=== PATIENT | female | born 1965 | race African-American/Black ===

== ENCOUNTER 2017-04-17 09:49 | Emergency (ER) | payer OTHER ==
[2017-04-17] MEDS ORDERED: Ibuprofen 200 MG TAB ONE (10:13)
[2017-04-17] MEDS ORDERED: Acetaminophen 500 MG TAB ONE (10:14)
[2017-04-17] MEDS ORDERED: Nitroglycerin 2% Ointment 1 INCH/1 GM Packet ONE (11:04)
== END 2017-04-17 11:00 | disposition home or self-care (01) ==
LOC: NAV ERS 09:49
DX: J02.9 Acute pharyngitis, unspecified (principal)
CPT/HCPCS: 99283

== ENCOUNTER 2017-11-19 11:11 | Emergency (ER) | payer SELFPAY ==
[2017-11-19] MEDS ORDERED: Benzonatate 100 MG CAP ONE (11:46)
== END 2017-11-19 12:00 | disposition home or self-care (01) ==
LOC: NAV ERS 11:11
DX: J06.9 Acute upper respiratory infection, unspecified (principal)
CPT/HCPCS: 99283

== ENCOUNTER 2017-11-21 01:10 | Emergency (ER) | payer SELFPAY ==
[2017-11-21 01:58] LABS: Band 1 % (5-11); Eosinophils 3 % (0-10); Hemoglobin 11.4 g/dL (12.0-16.0); Lymphocytes 30 % (21-51); MDiff Complete? YES; Mean Corpuscular Hemoglobin 27.1 pg (27.0-31.0); Mean Corpuscular Volume 87.1 fl (81.0-99.0); Mean Platelet Volume 10.1 fL (7.4-10.4); Monocytes 6 % (0-10); Neutrophil 60 % (42-75); PLT Morphology Comment Appears Adequate; Platelet Count 218 thou/uL (130-400); RBC Distribution Width 12.6 % (11.5-14.5); RBC Morphology Normal; White Blood Cell (WBC) Count 6.8 thou/uL (4.8-10.8)
[2017-11-21 02:03] LABS: ALT (SGPT) 25 U/L (8-55); AST (SGOT) 24 U/L (5-34); Albumin 3.8 g/dL (3.5-5.0); Alkaline Phosphatase 105 U/L (40-150); Anion Gap 14 mmol/L (10-20); BUN (Urea Nitrogen) 15 mg/dL (9.8-20.1); Bilirubin, Total 0.2 mg/dL (0.2-1.2); Calc. Creatinine Clearance 0 mL/min (70-130); Calcium 9.3 mg/dL (7.8-10.44); Carbon Dioxide 25 mmol/L (22-29); Chloride 108 mmol/L (98-107); Estimated GFR-MDRD 82; Globulin 3.9 g/dL (2.4-3.5); Glucose 232 mg/dL (70-105); Potassium 3.8 mmol/L (3.5-5.1); Protein, Total 7.7 g/dL (6.0-8.3); Sodium 143 mmol/L (136-145)
[2017-11-21] MEDS ORDERED: cefTRIAXone\\ROCEPHIN 1 GM VIAL ONE (02:41)
[2017-11-21] MEDS ORDERED: Azithromycin 500 MG VIAL ONE (02:41)
[2017-11-21] MEDS ORDERED: Sodium Chloride 0.9% 100 ML ONE (02:41)
[2017-11-21] MEDS ORDERED: Sodium Chloride 0.9% 250 ML 250 ML ONE (02:52)
--- NOTE | 2017-11-21 07:27 | RAD ---
2 VIEWS CHEST: Date: 11/21/17 COMPARISON: None. HISTORY: Five days of cough and shortness of breath. FINDINGS: Two views of the chest show a cardiomediastinal silhouette which is upper limits of normal in size. A ir space opacity is seen obscuring the left hemidiaphragm and the left lower lobe consistent with lef t lower lobe pneumonia. No right side infiltrates are seen. No obvious pleural effusion is seen. IMPRESSION: Left lower lobe pneumonia. POS: [facility]
== END 2017-11-21 04:15 | disposition home or self-care (01) ==
LOC: NAV ERS 01:10
DX: J18.9 Pneumonia, unspecified organism (principal)
CPT/HCPCS: 36415; 71046; 80053; 83605; 85025; 87040; 94640; 94760; 96365; 96375; J0456; J0696; J7050; J7620

== ENCOUNTER 2017-11-23 08:28 | Emergency (ER) | payer SELFPAY | END 2017-11-23 09:05 | disposition home or self-care (01) | LOC: NAV ERS 08:28 | DX: J18.9 Pneumonia, unspecified organism (principal); I10 Essential (primary) hypertension | CPT/HCPCS: 99283 ==

== ENCOUNTER 2017-12-18 22:59 | Emergency (ER) | payer SELFPAY ==
[~2017-12-18 22:59] MED LIST: Iopamidol 370 76% 100 ML VIAL ONE
[2017-12-18 23:40] LABS: #Basophils 0.1 thou/uL (0.0-0.2); #Eosinphils 0.2 thou/uL (0.0-0.7); #Lymphocytes 2.2 thou/uL (1.20-3.40); #Monocytes 0.5 thou/uL (0.11-0.59); #Neutrophils 3.5 thou/uL (1.40-6.50); %Basophils 1.1 % (0.0-1.0); %Eosinophils 2.7 % (0.0-10.0); %Lymphocytes 33.5 % (21.0-51.0); %Monocytes 8.1 % (0.0-10.0); %Neutrophils 54.6 % (42.0-75.0); Hemoglobin 11.7 g/dL (12.0-16.0); Mean Corpuscular HGB CONC 31.3 g/dL (32.0-36.0); Mean Corpuscular Hemoglobin 26.7 pg (27.0-31.0); Mean Corpuscular Volume 85.1 fl (81.0-99.0); Mean Platelet Volume 9.4 fL (7.4-10.4); Platelet Count 191 thou/uL (130-400); RBC Distribution Width 13.6 % (11.5-14.5); Red Blood Cell (RBC) Count 4.39 mill/uL (4.20-5.40); White Blood Cell (WBC) Count 6.4 thou/uL (4.8-10.8)
[2017-12-18 23:57] LABS: CKMB 1.1 ng/mL (0-6.6); Troponin I Less than 0.010 ng/mL (< 0.028)
[2017-12-19 00:18] LABS: ALT (SGPT) 15 U/L (8-55); AST (SGOT) 15 U/L (5-34); Albumin 3.7 g/dL (3.5-5.0); Alkaline Phosphatase 82 U/L (40-150); Anion Gap 15 mmol/L (10-20); BUN (Urea Nitrogen) 13 mg/dL (9.8-20.1); Bilirubin, Total 0.3 mg/dL (0.2-1.2); Calc. Creatinine Clearance 0 mL/min (70-130); Calcium 8.9 mg/dL (7.8-10.44); Carbon Dioxide 25 mmol/L (22-29); Chloride 106 mmol/L (98-107); Estimated GFR-MDRD 86; Globulin 3.6 g/dL (2.4-3.5); Glucose 208 mg/dL (70-105); Potassium 3.2 mmol/L (3.5-5.1); Protein, Total 7.3 g/dL (6.0-8.3); Sodium 143 mmol/L (136-145)
[2017-12-19] MEDS ORDERED: Potassium Chloride 20 MEQ TAB ONE (00:30)
--- NOTE | 2017-12-19 06:56 | RAD ---
PORTABLE AP CHEST: Date: 12/18/17 HISTORY: Five days of coughing, worsening shortness of breath. COMPARISON: 11/21/17. FINDINGS: Again noted are pleural and parenchymal changes in the left lung base. This may be related to moderat e size left pleural effusion or atelectasis, although infiltrate related to pneumonia is a possibilit y. There are mild increased interstitial densities in the perihilar regions bilaterally, also seen on prior study. Cardiac silhouette is magnified by projection. Pulmonary vasculature is within normal l imits. IMPRESSION: Pleural and parenchymal lung changes again seen at the left lung base which may be related to moderat e size left pleural effusion and atelectasis. However, infiltrate related to a pneumonia is a possibi lity. There are mild increasing perihilar interstitial densities also present on the prior exam. POS: [facility]
--- NOTE | 2017-12-19 07:37 | CT ---
PRELIMINARY REPORT/[facility]/EMERGENCY AFTER-HOURS PROCEDURE: EXAM: CT Angiography Chest With Intravenous Contrast CLINICAL HISTORY: 52 years old, female; Pain; Chest pain; On breathing; Patient HX: SOB and mid chest pain TECHNIQUE: Axial computed tomographic angiography images of the chest with intravenous contrast using pulmonary embolism protocol. All CT scans at this facility use one or more dose reduction techniques, viz.: aut omated exposure control; ma/kV adjustment per patient size (including targeted exams where dose is ma tched to indication; i.e. head); or iterative reconstruction technique. MIP reconstructed images were created and reviewed. CONTRAST: 97 mL of ISOVUE 370 administered intravenously. COMPARISON: No relevant prior studies available. FINDINGS: Pulmonary arteries: Unremarkable. No pulmonary embolism. Aorta: No acute findings. No thoracic aortic aneurysm. Lungs: Scattered pulmonary parenchymal cysts. Left lower lobe compressive atelectasis. Subsegmental atelectasis in the bilateral lungs. No mass. Pleural space: Moderate bilateral pleural effusions. No pneumothorax. Heart: Mild cardiomegaly. No significant pericardial effusion. No evidence of RV dysfunction. Bones/joints: Degenerative changes in the spine. No acute fracture. No dislocation. Soft tissues: Unremarkable. Lymph nodes: Unremarkable. No enlarged lymph nodes. IMPRESSION: 1. No pulmonary embolism is evident. 2. Moderate bilateral pleural effusions with left lower lobe compressive atelectasis. Thank you for allowing us to participate in the care of your patient. Dictated and Authenticated by: Judit Olvera MD 12/19/2017 1:26 AM Central Time ([place] & [place]) FINAL REPORT CT PULMONARY ANGIOGRAM WITH IV CONTRAST AND 3D POSTPROCESSING: Date: 12/19/17 FINDINGS/IMPRESSION: I agree with the preliminary report given by Dr. Judit Olvera of [facility]. POS: [facility]
== END 2017-12-19 02:19 | disposition short-term general hospital (02) ==
LOC: NAV ERS 22:59
DX: J90 Pleural effusion, not elsewhere classified (principal); I10 Essential (primary) hypertension
CPT/HCPCS: 36415; 71045; 71275; 80053; 82553; 83605; 83880; 84484; 85025; 85379; 93005; 94760

== ENCOUNTER 2018-02-27 10:48 | Emergency (ER) | payer SELFPAY | END 2018-02-27 11:42 | disposition home or self-care (01) | LOC: NAV ERS 10:48 | DX: E11.65 Type 2 diabetes mellitus with hyperglycemia (principal); I11.0 Hypertensive heart disease with heart failure; I50.9 Heart failure, unspecified; E78.5 Hyperlipidemia, unspecified | CPT/HCPCS: 36416; 93005 ==

== ENCOUNTER 2018-03-15 11:32 | Emergency (ER) | payer SELFPAY ==
[2018-03-15] MEDS ORDERED: Ondansetron ODT 4 MG TAB ONE (11:50)
[2018-03-15 12:12] LABS: pH (venous) 7.35 (7.35-7.45)
[2018-03-15 12:13] LABS: Base Excess -2.7 mEq/L (-2 - +2)
[2018-03-15 12:14] LABS: Hemoglobin (Hb) 13.2 g/dL (11.7-16.0)
== END 2018-03-15 12:35 | disposition home or self-care (01) ==
LOC: NAV ERS 11:32
DX: R11.2 Nausea with vomiting, unspecified (principal); E11.9 Type 2 diabetes mellitus without complications; E78.5 Hyperlipidemia, unspecified; I11.0 Hypertensive heart disease with heart failure; I50.9 Heart failure, unspecified; Z79.84 Long term (current) use of oral hypoglycemic drugs; Z79.899 Other long term (current) drug therapy
CPT/HCPCS: 36416; 82805; 93005; Q0162

== ENCOUNTER 2018-03-31 08:04 | Emergency (ER) | payer SELFPAY ==
[2018-03-31] MEDS ORDERED: Sodium Chloride 0.9% 500 ML ONE (08:43)
[2018-03-31 09:18] LABS: ALT (SGPT) 11 U/L (8-55); AST (SGOT) 12 U/L (5-34); Albumin 3.9 g/dL (3.5-5.0); Alkaline Phosphatase 74 U/L (40-150); Anion Gap 18 mmol/L (10-20); BUN (Urea Nitrogen) 52 mg/dL (9.8-20.1); Bilirubin, Total 0.6 mg/dL (0.2-1.2); Calc. Creatinine Clearance 0 mL/min (70-130); Calcium 9.4 mg/dL (7.8-10.44); Carbon Dioxide 19 mmol/L (22-29); Chloride 104 mmol/L (98-107); Estimated GFR-MDRD 54; Globulin 3.9 g/dL (2.4-3.5); Glucose 229 mg/dL (70-105); Potassium 5.3 mmol/L (3.5-5.1); Protein, Total 7.8 g/dL (6.0-8.3); Sodium 136 mmol/L (136-145)
[2018-03-31 09:20] LABS: Hemoglobin 10.7 g/dL (12.0-16.0); Mean Corpuscular Hemoglobin 27.5 pg (27.0-31.0); Mean Corpuscular Volume 85.7 fl (81.0-99.0); Mean Platelet Volume 8.3 fL (7.4-10.4); Platelet Count 194 thou/uL (130-400); RBC Distribution Width 15.6 % (11.5-14.5); Red Blood Cell (RBC) Count 3.89 mill/uL (4.20-5.40); White Blood Cell (WBC) Count 6.5 thou/uL (4.8-10.8)
[2018-03-31 09:21] LABS: Anisocytosis SLIGHT = 6-15 cells (100X) (0-5/hpf); Eosinophils 1 % (0-10); Hypochromia SLIGHT = 6-15 cells (100X) (0-5/hpf); Lymphocytes 24 % (21-51); MDiff Complete? YES; Monocytes 6 % (0-10); Neutrophil 69 % (42-75); PLT Morphology Comment Appears Adequate
== END 2018-03-31 10:45 | disposition home or self-care (01) ==
LOC: NAV ERS 08:04
DX: I95.2 Hypotension due to drugs (principal); T46.5X5A Adverse effect of other antihypertensive drugs, initial encounter; E87.5 Hyperkalemia; N28.9 Disorder of kidney and ureter, unspecified; I11.0 Hypertensive heart disease with heart failure; I50.9 Heart failure, unspecified; E11.9 Type 2 diabetes mellitus without complications; E78.5 Hyperlipidemia, unspecified; Z79.84 Long term (current) use of oral hypoglycemic drugs; Z79.899 Other long term (current) drug therapy
CPT/HCPCS: 80053; 85025; 96360; J7050

== ENCOUNTER 2018-03-31 19:25 | Emergency (ER) | payer SELFPAY ==
[2018-03-31] MEDS ORDERED: Sodium Chloride 0.9% 1,000 ML ONE (20:04)
[2018-03-31] MEDS ORDERED: Ondansetron HCl/PF 4 MG/2 ML Vial ONE (20:04)
== END 2018-03-31 21:03 | disposition home or self-care (01) ==
LOC: NAV ERS 19:25
DX: T67.5XXA Heat exhaustion, unspecified, initial encounter (principal); R42 Dizziness and giddiness; T46.5X5A Adverse effect of other antihypertensive drugs, initial encounter; E78.5 Hyperlipidemia, unspecified; I11.0 Hypertensive heart disease with heart failure; I50.9 Heart failure, unspecified; E11.9 Type 2 diabetes mellitus without complications; Z79.84 Long term (current) use of oral hypoglycemic drugs; Z79.899 Other long term (current) drug therapy; W92.XXXA Exposure to excessive heat of man-made origin, initial encounter; Y92.511 Restaurant or cafe as the place of occurrence of the external cause; Y99.0 Civilian activity done for income or pay
CPT/HCPCS: 96361; 96374; J2405; J7050

== ENCOUNTER 2018-06-06 09:26 | Emergency (ER) | payer SELFPAY ==
[2018-06-06] MEDS ORDERED: Sodium Chloride 0.9% 1,000 ML ONE (10:24)
[2018-06-06 10:27] LABS: #Basophils 0.1 thou/uL (0.0-0.2); #Eosinphils 0.3 thou/uL (0.0-0.7); #Lymphocytes 1.6 thou/uL (1.20-3.40); #Monocytes 0.5 thou/uL (0.11-0.59); #Neutrophils 4.1 thou/uL (1.40-6.50); %Basophils 1.6 % (0.0-1.0); %Lymphocytes 24.4 % (21.0-51.0); %Monocytes 7.6 % (0.0-10.0); %Neutrophils 62.4 % (42.0-75.0); Hemoglobin 10.9 g/dL (12.0-16.0); Mean Corpuscular HGB CONC 32.2 g/dL (32.0-36.0); Mean Corpuscular Hemoglobin 28.8 pg (27.0-31.0); Mean Corpuscular Volume 89.5 fL (78.0-98.0); Mean Platelet Volume 8.3 fL (7.4-10.4); Platelet Count 241 thou/uL (130-400); RBC Distribution Width 11.9 % (11.5-14.5); Red Blood Cell (RBC) Count 3.79 mill/uL (4.20-5.40); White Blood Cell (WBC) Count 6.6 thou/uL (4.8-10.8)
[2018-06-06 11:01] LABS: CKMB 1.8 ng/mL (0-6.6); Troponin I Less than 0.010 ng/mL (< 0.028)
[2018-06-06 11:02] LABS: ALT (SGPT) 13 U/L (8-55); AST (SGOT) 12 U/L (5-34); Albumin 3.9 g/dL (3.5-5.0); Alkaline Phosphatase 79 U/L (40-150); Anion Gap 16 mmol/L (10-20); BUN (Urea Nitrogen) 26 mg/dL (9.8-20.1); Bilirubin, Total 0.4 mg/dL (0.2-1.2); CK (CPK) 195 U/L (29-168); Calc. Creatinine Clearance 0 mL/min (70-130); Calcium 9.4 mg/dL (7.8-10.44); Carbon Dioxide 19 mmol/L (22-29); Chloride 109 mmol/L (98-107); Estimated GFR-MDRD 80; Globulin 3.2 g/dL (2.4-3.5); Glucose 185 mg/dL (70-105); Potassium 4.4 mmol/L (3.5-5.1); Protein, Total 7.1 g/dL (6.0-8.3); Sodium 140 mmol/L (136-145)
[2018-06-06 11:22] LABS: Bilirubin Negative (Negative); Blood, Urine Negative (Negative); Glucose, Urine (Dipstick) Negative (Negative); Leukocyte Large (Negative); Nitrite Negative (Negative); Protein, Urine (Dipstick) 30 mg/dL (Neg-Trace); Specific Gravity, Urine 1.025 (1.005-1.030); Urobilinogen 0.2 mg/dL (0.2-1.0)
[2018-06-06 11:24] LABS: Clarity SL HAZY (Clear)
[2018-06-06 11:25] LABS: Squamous Epithelial 0-3 HPF (0-3); WBC/HPF 0-3 HPF (0-3)
--- NOTE | 2018-06-06 11:33 | CT ---
CT BRAIN NONCONTRAST: HISTORY: 53-year-old female with dizziness and vertigo. FINDINGS: There is no midline shift or any other mass effect. There is no evidence of acute intracranial hemor rhage, large cortical infarct, obstructive hydrocephalus, or extraaxial fluid collection. The calvar ium is intact. IMPRESSION: No acute intracranial findings. reece [] POS: [facility]
--- NOTE | 2018-06-06 11:33 | RAD ---
RADIOGRAPH CHEST 2 VIEWS: HISTORY: 53-year-old female with dizziness and vertigo. FINDINGS: There is no air space density, pulmonary edema, pleural effusion, pneumothorax, or cardiomegaly. IMPRESSION: No acute cardiopulmonary findings. reece [] POS: [facility]
== END 2018-06-06 12:13 | disposition home or self-care (01) ==
LOC: NAV ERS 09:26
DX: I95.2 Hypotension due to drugs (principal); T50.905A Adverse effect of unspecified drugs, medicaments and biological substances, initial encounter; R42 Dizziness and giddiness; H61.22 Impacted cerumen, left ear; I11.0 Hypertensive heart disease with heart failure; I50.9 Heart failure, unspecified; E11.9 Type 2 diabetes mellitus without complications; E78.5 Hyperlipidemia, unspecified; Z79.82 Long term (current) use of aspirin; Z79.84 Long term (current) use of oral hypoglycemic drugs; Z79.899 Other long term (current) drug therapy
CPT/HCPCS: 70450; 71046; 80053; 81003; 81015; 82553; 84484; 85025; 93005; 96360; 96361; J7050

== ENCOUNTER 2018-08-05 09:32 | Emergency (ER) | payer SELFPAY | END 2018-08-05 10:27 | disposition home or self-care (01) | LOC: NAV ERS 09:32 | DX: F43.0 Acute stress reaction (principal); I11.0 Hypertensive heart disease with heart failure; I50.9 Heart failure, unspecified; E11.9 Type 2 diabetes mellitus without complications; E78.5 Hyperlipidemia, unspecified; Z79.82 Long term (current) use of aspirin; Z79.84 Long term (current) use of oral hypoglycemic drugs; Z79.899 Other long term (current) drug therapy | CPT/HCPCS: 99283 ==

== ENCOUNTER 2018-09-29 08:15 | Emergency (ER) | payer OTHER, SELFPAY ==
[2018-09-29 09:12] LABS: #Basophils 0.1 thou/uL (0.0-0.2); #Eosinphils 0.2 thou/uL (0.0-0.7); #Lymphocytes 1.4 thou/uL (1.20-3.40); #Monocytes 0.6 thou/uL (0.11-0.59); #Neutrophils 3.6 thou/uL (1.40-6.50); %Basophils 0.9 % (0.0-1.0); %Eosinophils 3.1 % (0.0-10.0); %Monocytes 9.6 % (0.0-10.0); %Neutrophils 62.4 % (42.0-75.0); Hemoglobin 10.2 g/dL (12.0-16.0); Mean Corpuscular HGB CONC 32.3 g/dL (32.0-36.0); Mean Corpuscular Hemoglobin 29.2 pg (27.0-31.0); Mean Corpuscular Volume 90.5 fL (78.0-98.0); Mean Platelet Volume 7.9 fL (7.4-10.4); Platelet Count 191 thou/uL (130-400); RBC Distribution Width 12.7 % (11.5-14.5); White Blood Cell (WBC) Count 5.7 thou/uL (4.8-10.8)
[2018-09-29 09:28] LABS: ALT (SGPT) 9 U/L (8-55); AST (SGOT) 10 U/L (5-34); Albumin 3.5 g/dL (3.5-5.0); Alkaline Phosphatase 58 U/L (40-150); Anion Gap 14 mmol/L (10-20); BUN (Urea Nitrogen) 20 mg/dL (9.8-20.1); Bilirubin, Total 0.3 mg/dL (0.2-1.2); Calc. Creatinine Clearance 0 mL/min (70-130); Calcium 8.9 mg/dL (7.8-10.44); Carbon Dioxide 23 mmol/L (22-29); Chloride 107 mmol/L (98-107); Estimated GFR-MDRD 88; Globulin 3.3 g/dL (2.4-3.5); Glucose 170 mg/dL (70-105); Magnesium 1.6 mg/dL (1.6-2.6); Potassium 4.1 mmol/L (3.5-5.1); Protein, Total 6.8 g/dL (6.0-8.3); Sodium 140 mmol/L (136-145)
[2018-09-29 09:29] LABS: Troponin I Less than 0.010 ng/mL (< 0.028)
[2018-09-29 09:37] LABS: Bilirubin Negative (Negative); Blood, Urine Negative (Negative); Clarity Clear (Clear); Glucose, Urine (Dipstick) Negative (Negative); Leukocyte Trace (Negative); Nitrite Negative (Negative); Protein, Urine (Dipstick) 30 mg/dL (Neg-Trace); Specific Gravity, Urine 1.025 (1.005-1.030); Urobilinogen 0.2 mg/dL (0.2-1.0); pH, Urine 5.5 (5.0-9.0)
[2018-09-29] MEDS ORDERED: Sodium Chloride 0.9% 1,000 ML ONE (09:43)
[2018-09-29 09:59] LABS: Bacteria/HPF Rare-Few HPF (None Seen); Other Microscopic Description NO; RBC/HPF None Seen HPF (0-3); Squamous Epithelial 0-3 HPF (0-3); WBC/HPF 0-3 HPF (0-3)
--- NOTE | 2018-09-29 11:39 | RAD ---
2 VIEW CHEST: Date: 09/29/18 COMPARISON: 08/24/18. INDICATION: Dizziness. Hypotension. FINDINGS: There is shallow depth of inspiration, which accentuates cardiac silhouette and pulmonary vasculature . There is a single lead left AICD. No evidence of consolidation or significant effusion. The left alina ng base is obscured by cardiac pacing device. IMPRESSION: Shallow depth of inspiration accentuating cardiac silhouette and pulmonary vasculature. A mild compon ent of edema may be superimposed, as well. POS: [facility]
== END 2018-09-29 12:07 | disposition home or self-care (01) ==
LOC: NAV ERS 08:15
DX: I95.1 Orthostatic hypotension (principal); E86.0 Dehydration; E11.9 Type 2 diabetes mellitus without complications; E78.5 Hyperlipidemia, unspecified; I11.0 Hypertensive heart disease with heart failure; I50.9 Heart failure, unspecified; Z79.84 Long term (current) use of oral hypoglycemic drugs; Z79.82 Long term (current) use of aspirin; Z79.899 Other long term (current) drug therapy
CPT/HCPCS: 36416; 71046; 80053; 81003; 81015; 83605; 83735; 83880; 84484; 85025; 93005; 94760; 96360; 96361; 36415-59; J7050

== ENCOUNTER 2018-11-22 08:09 | Emergency (ER) | payer OTHER | END 2018-11-22 08:58 | disposition home or self-care (01) | LOC: NAV ERS 08:09 | DX: I95.9 Hypotension, unspecified (principal); E11.9 Type 2 diabetes mellitus without complications; I11.0 Hypertensive heart disease with heart failure; I50.9 Heart failure, unspecified; E78.5 Hyperlipidemia, unspecified; Z79.82 Long term (current) use of aspirin; Z79.84 Long term (current) use of oral hypoglycemic drugs; Z79.899 Other long term (current) drug therapy; Z79.891 Long term (current) use of opiate analgesic | CPT/HCPCS: 99283 ==

== ENCOUNTER 2019-01-22 08:17 | Emergency (ER) | payer OTHER ==
[2019-01-22 09:04] LABS: #Basophils 0.1 thou/uL (0.0-0.2); #Eosinphils 0.2 thou/uL (0.0-0.7); #Monocytes 0.5 thou/uL (0.11-0.59); #Neutrophils 3.9 thou/uL (1.40-6.50); %Basophils 1.2 % (0.0-1.0); %Eosinophils 3.8 % (0.0-10.0); %Lymphocytes 17.5 % (21.0-51.0); %Monocytes 8.9 % (0.0-10.0); %Neutrophils 68.7 % (42.0-75.0); Hemoglobin 9.3 g/dL (12.0-16.0); Mean Corpuscular HGB CONC 31.7 g/dL (32.0-36.0); Mean Corpuscular Hemoglobin 28.7 pg (27.0-31.0); Mean Corpuscular Volume 90.5 fL (78.0-98.0); Mean Platelet Volume 8.2 fL (7.4-10.4); Platelet Count 162 thou/uL (130-400); RBC Distribution Width 14.5 % (11.5-14.5); Red Blood Cell (RBC) Count 3.24 mill/uL (4.20-5.40); White Blood Cell (WBC) Count 5.7 thou/uL (4.8-10.8)
[2019-01-22] MEDS ORDERED: Acetaminophen 500 MG TAB ONE (09:07)
[2019-01-22] MEDS ORDERED: Sodium Chloride 0.9% 500 ML ONE (09:08)
--- NOTE | 2019-01-22 09:17 | RAD ---
SINGLE VIEW CHEST: Date: 01/22/19 COMPARISON: 08/24/18. HISTORY: Hypotension and low blood sugar. FINDINGS: Single view of the chest shows a normal sized cardiomediastinal silhouette. The pacemaker is unchange d in position. There is no evidence of consolidation, mass, or pleural effusion. IMPRESSION: No evidence of acute cardiopulmonary disease. POS: [facility]
[2019-01-22 09:26] LABS: ALT (SGPT) 12 U/L (8-55); AST (SGOT) 14 U/L (5-34); Albumin 3.2 g/dL (3.5-5.0); Alkaline Phosphatase 71 U/L (40-150); Anion Gap 14 mmol/L (10-20); BUN (Urea Nitrogen) 23 mg/dL (9.8-20.1); Bilirubin, Total 0.3 mg/dL (0.2-1.2); Calc. Creatinine Clearance 0 mL/min (70-130); Calcium 8.6 mg/dL (7.8-10.44); Carbon Dioxide 21 mmol/L (22-29); Chloride 109 mmol/L (98-107); Estimated GFR-MDRD 80; Globulin 3.5 g/dL (2.4-3.5); Glucose 135 mg/dL (70-105); Potassium 4.6 mmol/L (3.5-5.1); Protein, Total 6.7 g/dL (6.0-8.3); Sodium 139 mmol/L (136-145)
== END 2019-01-22 09:49 | disposition home or self-care (01) ==
LOC: NAV ERS 08:17
DX: I95.89 Other hypotension (principal); D64.9 Anemia, unspecified; E86.0 Dehydration; E11.649 Type 2 diabetes mellitus with hypoglycemia without coma; I11.0 Hypertensive heart disease with heart failure; I50.9 Heart failure, unspecified; Z79.82 Long term (current) use of aspirin; Z79.899 Other long term (current) drug therapy
CPT/HCPCS: 36416; 71045; 80053; 83880; 84484; 85025; 93005; J7050

== ENCOUNTER 2019-03-23 08:57 | Emergency (ER) | payer OTHER ==
[2019-03-23 09:48] LABS: #Basophils 0.1 thou/uL (0.0-0.2); #Eosinphils 0.3 thou/uL (0.0-0.7); #Lymphocytes 1.6 thou/uL (1.20-3.40); #Monocytes 0.4 thou/uL (0.11-0.59); #Neutrophils 4.3 thou/uL (1.40-6.50); %Basophils 1.2 % (0.0-1.0); %Eosinophils 4.3 % (0.0-10.0); %Lymphocytes 23.5 % (21.0-51.0); %Monocytes 6.4 % (0.0-10.0); %Neutrophils 64.6 % (42.0-75.0); Hemoglobin 9.9 g/dL (12.0-16.0); Mean Corpuscular Hemoglobin 28.1 pg (27.0-31.0); Mean Corpuscular Volume 90.6 fL (78.0-98.0); Mean Platelet Volume 8.1 fL (7.4-10.4); Platelet Count 205 thou/uL (130-400); RBC Distribution Width 13.6 % (11.5-14.5); Red Blood Cell (RBC) Count 3.53 mill/uL (4.20-5.40); White Blood Cell (WBC) Count 6.7 thou/uL (4.8-10.8)
[2019-03-23 09:50] LABS: Bilirubin Negative (Negative); Blood, Urine Negative (Negative); Clarity Clear (Clear); Glucose, Urine (Dipstick) Negative (Negative); Nitrite Negative (Negative); Protein, Urine (Dipstick) 100 mg/dL (Neg-Trace); Urobilinogen 0.2 mg/dL (0.2-1.0); pH, Urine 5.5 (5.0-9.0)
[2019-03-23 10:00] LABS: Bacteria/HPF Rare-Few HPF (None Seen); Leukocyte Negative (Negative); Other Microscopic Description NO; RBC/HPF None Seen HPF (0-3); Squamous Epithelial 0-3 HPF (0-3); WBC/HPF 0-3 HPF (0-3)
[2019-03-23 10:01] LABS: ALT (SGPT) 11 U/L (8-55); AST (SGOT) 15 U/L (5-34); Albumin 3.4 g/dL (3.5-5.0); Alkaline Phosphatase 78 U/L (40-150); Anion Gap 15 mmol/L (10-20); BUN (Urea Nitrogen) 22 mg/dL (9.8-20.1); Bilirubin, Total 0.4 mg/dL (0.2-1.2); Calc. Creatinine Clearance 0 mL/min (70-130); Calcium 8.5 mg/dL (7.8-10.44); Carbon Dioxide 24 mmol/L (22-29); Chloride 106 mmol/L (98-107); Estimated GFR-MDRD 66; Globulin 3.2 g/dL (2.4-3.5); Glucose 258 mg/dL (70-105); Potassium 4.6 mmol/L (3.5-5.1); Protein, Total 6.6 g/dL (6.0-8.3); Sodium 140 mmol/L (136-145)
== END 2019-03-23 10:28 | disposition home or self-care (01) ==
LOC: NAV ERS 08:57
DX: E11.65 Type 2 diabetes mellitus with hyperglycemia (principal); R51 Headache; I11.0 Hypertensive heart disease with heart failure; I50.9 Heart failure, unspecified; E78.5 Hyperlipidemia, unspecified; Z79.899 Other long term (current) drug therapy
CPT/HCPCS: 36416; 80053; 81003; 81015; 85025; 93005

== ENCOUNTER 2020-04-12 08:49 | Emergency (ER) | payer OTHER, SELFPAY | END 2020-04-12 10:12 | disposition home or self-care (01) | LOC: NAV ERS 08:49 | DX: R68.83 Chills (without fever) (principal); R05 Cough; R06.7 Sneezing; Z20.828 Contact with and (suspected) exposure to other viral communicable diseases; E11.9 Type 2 diabetes mellitus without complications; D50.9 Iron deficiency anemia, unspecified; E78.5 Hyperlipidemia, unspecified; I11.0 Hypertensive heart disease with heart failure; I50.9 Heart failure, unspecified; Z79.82 Long term (current) use of aspirin; Z79.84 Long term (current) use of oral hypoglycemic drugs; Z79.899 Other long term (current) drug therapy; Z79.891 Long term (current) use of opiate analgesic | CPT/HCPCS: 99283 ==

== ENCOUNTER 2020-10-30 09:59 | Emergency (ER) | payer MEDICARE, OTHER, SELFPAY ==
[2020-10-30 11:29] LABS: #Basophils 0.1 thou/uL (0.0-0.2); #Eosinphils 0.3 thou/uL (0.0-0.7); #Lymphocytes 1.3 thou/uL (1.20-3.40); #Monocytes 0.4 thou/uL (0.11-0.59); #Neutrophils 4.1 thou/uL (1.40-6.50); %Basophils 0.9 % (0.0-1.0); %Eosinophils 5.2 % (0.0-10.0); %Lymphocytes 20.5 % (21.0-51.0); %Monocytes 7.1 % (0.0-10.0); %Neutrophils 66.2 % (42.0-75.0); Hemoglobin 10.1 g/dL (12.0-16.0); Mean Corpuscular HGB CONC 30.1 g/dL (32.0-36.0); Mean Corpuscular Volume 93.1 fL (78.0-98.0); Mean Platelet Volume 7.9 fL (7.4-10.4); Platelet Count 220 thou/uL (130-400); RBC Distribution Width 15.2 % (11.5-14.5); Red Blood Cell (RBC) Count 3.62 mill/uL (4.20-5.40); White Blood Cell (WBC) Count 6.2 thou/uL (4.8-10.8)
[2020-10-30] MEDS ORDERED: Sodium Chloride 0.9% 1,000 ML ONE (11:44)
[2020-10-30 11:47] LABS: ALT (SGPT) 9 U/L (8-55); AST (SGOT) 7 U/L (5-34); Albumin 3.7 g/dL (3.5-5.0); Alkaline Phosphatase 94 U/L (40-110); Anion Gap 16 mmol/L (10-20); BUN (Urea Nitrogen) 28 mg/dL (9.8-20.1); Bilirubin, Total 0.2 mg/dL (0.2-1.2); Calc. Creatinine Clearance 0 mL/min (70-130); Calcium 8.8 mg/dL (7.8-10.44); Carbon Dioxide 19 mmol/L (22-29); Chloride 108 mmol/L (98-107); Globulin 3.9 g/dL (2.4-3.5); Glucose 232 mg/dL (70-105); Potassium 4.2 mmol/L (3.5-5.1); Protein, Total 7.6 g/dL (6.0-8.3); Sodium 139 mmol/L (136-145)
--- NOTE | 2020-10-30 12:31 | RAD ---
RADIOGRAPH CHEST 2 VIEWS: DATE: 10/30/2020 HISTORY: 55-year-old female with sepsis FINDINGS: There is no airspace density, pulmonary edema, pleural effusion, pneumothorax, or cardiomegaly. Singl e lead ICD with left-sided generator. IMPRESSION: No acute cardiopulmonary findings.
[2020-10-30 13:11] LABS: Bilirubin Negative (Negative); Blood, Urine Negative (Negative); Clarity Clear (Clear); Glucose, Urine (Dipstick) >=1000 mg/dL (Negative); Ketone, Urine Negative (Negative); Leukocyte Trace (Negative); Nitrite Negative (Negative); Protein, Urine (Dipstick) Negative (Neg-Trace); Urobilinogen 0.2 mg/dL (Less than 2)
[2020-10-30 13:17] LABS: Bacteria/HPF Rare-Few HPF (None Seen); RBC/HPF 0-3 HPF (0-3)
[2020-10-30] MEDS ORDERED: Sodium Chloride 0.9% 100 ML ONE (13:25)
[2020-10-30] MEDS ORDERED: cefTRIAXone\\ROCEPHIN 2 GM VIAL ONE (13:25)
[2020-10-30] MEDS ORDERED: Sodium Chloride 0.9% 500 ML ONE (13:43)
[2020-10-30 14:15] LABS: Lactic Acid 1.8 mmol/L (0.5-2.2)
== END 2020-10-30 14:37 | disposition short-term general hospital (02) ==
LOC: NAV ERS 09:59
DX: I95.9 Hypotension, unspecified (principal); D64.9 Anemia, unspecified; R00.1 Bradycardia, unspecified; E86.0 Dehydration; E11.9 Type 2 diabetes mellitus without complications; E78.5 Hyperlipidemia, unspecified; N39.0 Urinary tract infection, site not specified; D50.9 Iron deficiency anemia, unspecified; I11.0 Hypertensive heart disease with heart failure; I50.9 Heart failure, unspecified; Z79.84 Long term (current) use of oral hypoglycemic drugs; Z79.82 Long term (current) use of aspirin; Z79.899 Other long term (current) drug therapy
CPT/HCPCS: 36415; 71046; 80053; 81003; 81015; 83605; 84484; 85025; 87086; 93005; 96365; J0696; J3490; J7030; J7050

== ENCOUNTER 2022-02-13 07:42 | Emergency (ER) | payer MEDICARE ==
[2022-02-13] MEDS ORDERED: Sodium Chloride 0.9% 500 ML ONE (08:01)
[2022-02-13 09:21] LABS: Anion Gap 13 mmol/L (10-20); BUN (Urea Nitrogen) 24 mg/dL (9.8-20.1); Calc. Creatinine Clearance 0 mL/min (70-130); Calcium 8.5 mg/dL (7.8-10.44); Carbon Dioxide 22 mmol/L (22-29); Chloride 112 mmol/L (98-107); Glucose 219 mg/dL (70-105); Potassium 4.5 mmol/L (3.5-5.1); Sodium 142 mmol/L (136-145)
[2022-02-13 09:29] LABS: #Basophils 0.1 thou/uL (0.0-0.2); #Eosinphils 0.4 thou/uL (0.0-0.7); #Lymphocytes 1.5 thou/uL (1.20-3.40); #Monocytes 0.5 thou/uL (0.11-0.59); #Neutrophils 4.3 thou/uL (1.40-6.50); %Basophils 1.2 % (0.0-1.0); %Eosinophils 6.3 % (0.0-10.0); %Lymphocytes 21.9 % (21.0-51.0); %Monocytes 7.6 % (0.0-10.0); %Neutrophils 62.9 % (42.0-75.0); Hemoglobin 9.6 g/dL (12.0-16.0); Mean Corpuscular HGB CONC 28.9 g/dL (32.0-36.0); Mean Corpuscular Hemoglobin 27.6 pg (27.0-31.0); Mean Corpuscular Volume 95.2 fL (78.0-98.0); Platelet Count 187 thou/uL (130-400); RBC Distribution Width 14.8 % (11.5-14.5); Red Blood Cell (RBC) Count 3.49 mill/uL (4.20-5.40); White Blood Cell (WBC) Count 6.8 thou/uL (4.8-10.8)
== END 2022-02-13 09:55 | disposition home or self-care (01) ==
LOC: NAV ERS 07:42
DX: I95.9 Hypotension, unspecified (principal); E86.0 Dehydration; I11.0 Hypertensive heart disease with heart failure; I50.9 Heart failure, unspecified; E11.9 Type 2 diabetes mellitus without complications; E78.5 Hyperlipidemia, unspecified; D50.9 Iron deficiency anemia, unspecified; Z95.0 Presence of cardiac pacemaker; Z79.82 Long term (current) use of aspirin; Z79.4 Long term (current) use of insulin; Z79.899 Other long term (current) drug therapy
CPT/HCPCS: 80048; 85025; 99284; J7030

== ENCOUNTER 2022-05-11 11:25 | Emergency (ER) | payer MEDICARE | END 2022-05-11 12:40 | disposition home or self-care (01) | LOC: NAV ERS 11:25 | DX: U07.1 COVID-19 (principal); I50.9 Heart failure, unspecified; E11.9 Type 2 diabetes mellitus without complications; E78.5 Hyperlipidemia, unspecified; I11.0 Hypertensive heart disease with heart failure; Z79.899 Other long term (current) drug therapy; Z79.84 Long term (current) use of oral hypoglycemic drugs | CPT/HCPCS: 71046; U0003; U0005 ==

== ENCOUNTER 2022-05-27 07:03 | Emergency (ER) | payer MEDICARE | END 2022-05-27 07:45 | disposition home or self-care (01) | LOC: NAV ERS 07:03 | DX: E11.65 Type 2 diabetes mellitus with hyperglycemia (principal); E78.5 Hyperlipidemia, unspecified; I11.0 Hypertensive heart disease with heart failure; I50.9 Heart failure, unspecified; Z79.899 Other long term (current) drug therapy; Z79.84 Long term (current) use of oral hypoglycemic drugs | CPT/HCPCS: 36416; 99284 ==

== ENCOUNTER 2022-06-05 07:05 | Emergency (ER) | payer MEDICARE, OTHER | END 2022-06-05 08:00 | disposition home or self-care (01) | LOC: NAV ERS 07:05 | DX: I10 Essential (primary) hypertension (principal); D50.9 Iron deficiency anemia, unspecified; I11.0 Hypertensive heart disease with heart failure; I50.9 Heart failure, unspecified; E11.9 Type 2 diabetes mellitus without complications; E78.5 Hyperlipidemia, unspecified; Z79.82 Long term (current) use of aspirin; Z79.899 Other long term (current) drug therapy; Z79.84 Long term (current) use of oral hypoglycemic drugs | CPT/HCPCS: 99281 ==

== ENCOUNTER 2022-06-06 17:08 | Emergency (ER) | payer OTHER | END 2022-06-06 17:37 | disposition home or self-care (01) | LOC: NAV ERS 17:08 | DX: E11.65 Type 2 diabetes mellitus with hyperglycemia (principal); I11.0 Hypertensive heart disease with heart failure; I50.9 Heart failure, unspecified; E11.9 Type 2 diabetes mellitus without complications; E78.5 Hyperlipidemia, unspecified; D50.9 Iron deficiency anemia, unspecified; Z95.0 Presence of cardiac pacemaker; Z79.82 Long term (current) use of aspirin; Z79.84 Long term (current) use of oral hypoglycemic drugs; Z79.899 Other long term (current) drug therapy | CPT/HCPCS: 36416; 99281 ==

== ENCOUNTER 2022-09-20 14:58 | Emergency (ER) | payer OTHER ==
[2022-09-20] MEDS ORDERED: Benzonatate 100 MG CAP ONE (16:57)
== END 2022-09-20 17:50 | disposition home or self-care (01) ==
LOC: NAV ERS 14:58
DX: J10.1 Influenza due to other identified influenza virus with other respiratory manifestations (principal); J32.9 Chronic sinusitis, unspecified; E78.5 Hyperlipidemia, unspecified; E11.9 Type 2 diabetes mellitus without complications; I11.0 Hypertensive heart disease with heart failure; I50.9 Heart failure, unspecified; Z79.82 Long term (current) use of aspirin; Z79.84 Long term (current) use of oral hypoglycemic drugs; Z79.899 Other long term (current) drug therapy
CPT/HCPCS: 87804; 99283

== ENCOUNTER 2023-01-10 12:31 | Emergency (ER) | payer OTHER | END 2023-01-10 14:20 | disposition home or self-care (01) | LOC: NAV ERS 12:31 | DX: I95.9 Hypotension, unspecified (principal); E11.9 Type 2 diabetes mellitus without complications; E78.5 Hyperlipidemia, unspecified; I10 Essential (primary) hypertension; Z79.899 Other long term (current) drug therapy; Z79.84 Long term (current) use of oral hypoglycemic drugs | CPT/HCPCS: 99284 ==

== ENCOUNTER 2023-01-20 14:04 | Emergency (ER) | payer OTHER ==
[2023-01-20 14:53] LABS: #Basophils 0.1 thou/uL (0.0-0.2); #Eosinphils 0.6 thou/uL (0.0-0.7); #Lymphocytes 1.8 thou/uL (1.20-3.40); #Monocytes 0.5 thou/uL (0.11-0.59); #Neutrophils 3.8 thou/uL (1.40-6.50); %Eosinophils 8.4 % (0.0-10.0); %Lymphocytes 26.1 % (21.0-51.0); %Monocytes 7.7 % (0.0-10.0); %Neutrophils 56.8 % (42.0-75.0); Mean Corpuscular HGB CONC 30.6 g/dL (32.0-36.0); Mean Corpuscular Hemoglobin 27.9 pg (27.0-31.0); Mean Corpuscular Volume 91.3 fl (78.0-98.0); Mean Platelet Volume 7.5 fL (7.4-10.4); Platelet Count 215 10x3/uL (130-400); RBC Distribution Width 14.7 % (11.5-14.5); Red Blood Cell (RBC) Count 3.56 mill/uL (4.20-5.40); White Blood Cell (WBC) Count 6.8 10x3/uL (4.8-10.8)
[2023-01-20 15:08] LABS: ALT (SGPT) 10 U/L (8-55); AST (SGOT) 10 U/L (5-34); Albumin 3.6 g/dL (3.5-5.0); Alkaline Phosphatase 79 U/L (40-110); Anion Gap 15 mmol/L (10-20); BUN (Urea Nitrogen) 21 mg/dL (9.8-20.1); Bilirubin, Total 0.3 mg/dL (0.2-1.2); Calc. Creatinine Clearance 0 mL/min (70-130); Calcium 8.7 mg/dL (7.8-10.44); Carbon Dioxide 21 mmol/L (22-29); Chloride 109 mmol/L (98-107); Estimated GFR 46; Globulin 3.7 g/dL (2.4-3.5); Glucose 111 mg/dL (70-105); Magnesium 1.9 mg/dL (1.6-2.6); Potassium 3.9 mmol/L (3.5-5.1); Protein, Total 7.3 g/dL (6.0-8.3); Sodium 141 mmol/L (136-145)
== END 2023-01-20 15:30 | disposition home or self-care (01) ==
LOC: NAV ERS 14:04
DX: I95.9 Hypotension, unspecified (principal); E11.9 Type 2 diabetes mellitus without complications; I11.0 Hypertensive heart disease with heart failure; I50.9 Heart failure, unspecified; E78.5 Hyperlipidemia, unspecified; Z79.82 Long term (current) use of aspirin; Z79.84 Long term (current) use of oral hypoglycemic drugs
CPT/HCPCS: 36415; 80053; 83735; 85025; 99284

== ENCOUNTER 2023-02-18 14:25 | Emergency (ER) | payer OTHER | END 2023-02-18 15:05 | disposition home or self-care (01) | LOC: NAV ERS 14:25 | DX: I95.9 Hypotension, unspecified (principal); T46.1X5A Adverse effect of calcium-channel blockers, initial encounter; I11.0 Hypertensive heart disease with heart failure; I50.9 Heart failure, unspecified; E11.9 Type 2 diabetes mellitus without complications; Z79.82 Long term (current) use of aspirin; Z79.84 Long term (current) use of oral hypoglycemic drugs | CPT/HCPCS: 99284 ==

== ENCOUNTER 2023-05-20 07:04 | Emergency (ER) | payer OTHER | END 2023-05-20 08:25 | disposition home or self-care (01) | LOC: NAV ERS 07:04 | DX: E11.9 Type 2 diabetes mellitus without complications (principal); I10 Essential (primary) hypertension; E78.5 Hyperlipidemia, unspecified; Z79.82 Long term (current) use of aspirin; Z79.84 Long term (current) use of oral hypoglycemic drugs | CPT/HCPCS: 36416; 99283 ==

== ENCOUNTER 2023-12-21 14:52 | Emergency (ER) | payer OTHER | END 2023-12-21 16:23 | disposition home or self-care (01) | LOC: NAV ERS 14:52 | DX: R09.81 Nasal congestion (principal); R09.89 Other specified symptoms and signs involving the circulatory and respiratory systems; R03.0 Elevated blood-pressure reading, without diagnosis of hypertension; I11.0 Hypertensive heart disease with heart failure; I50.9 Heart failure, unspecified; E11.9 Type 2 diabetes mellitus without complications; E78.5 Hyperlipidemia, unspecified; Z79.899 Other long term (current) drug therapy; Z79.82 Long term (current) use of aspirin; Z79.84 Long term (current) use of oral hypoglycemic drugs | CPT/HCPCS: 71046; 87635; 87804 ==

== ENCOUNTER 2024-04-16 06:50 | Emergency (ER) | payer OTHER | END 2024-04-16 07:35 | disposition home or self-care (01) | LOC: NAV ERS 06:50 | DX: I11.0 Hypertensive heart disease with heart failure (principal); I50.9 Heart failure, unspecified; E11.9 Type 2 diabetes mellitus without complications; E78.5 Hyperlipidemia, unspecified; Z79.84 Long term (current) use of oral hypoglycemic drugs; Z79.899 Other long term (current) drug therapy; Z79.82 Long term (current) use of aspirin | CPT/HCPCS: 99283 ==

== ENCOUNTER 2024-05-12 16:45 | Emergency (ER) | payer OTHER ==
[2024-05-12] MEDS ORDERED: Naproxen 500 MG TAB ONE (18:04)
== END 2024-05-12 18:10 | disposition home or self-care (01) ==
LOC: NAV ERS 16:45
DX: T63.461A Toxic effect of venom of wasps, accidental (unintentional), initial encounter (principal); T78.40XA Allergy, unspecified, initial encounter; E11.9 Type 2 diabetes mellitus without complications; E78.5 Hyperlipidemia, unspecified; I11.0 Hypertensive heart disease with heart failure; I50.9 Heart failure, unspecified; Z79.84 Long term (current) use of oral hypoglycemic drugs; Z79.899 Other long term (current) drug therapy; Z79.82 Long term (current) use of aspirin
CPT/HCPCS: 99282

== ENCOUNTER 2024-10-29 08:44 | Emergency (ER) | payer OTHER ==
[2024-10-29 09:25] LABS: ALT (SGPT) 11 U/L (8-55); AST (SGOT) 10 U/L (5-34); Albumin 3.3 g/dL (3.5-5.0); Alkaline Phosphatase 80 U/L (40-110); Anion Gap 15 mmol/L (10-20); BUN (Urea Nitrogen) 22 mg/dL (9.8-20.1); Bilirubin, Total 0.3 mg/dL (0.2-1.2); Calc. Creatinine Clearance 0 mL/min (70-130); Calcium 8.5 mg/dL (7.8-10.44); Carbon Dioxide 21 mmol/L (22-29); Chloride 107 mmol/L (98-107); Estimated GFR 44; Globulin 4.2 g/dL (2.4-3.5); Glucose 217 mg/dL (70-105); Potassium 4.2 mmol/L (3.5-5.1); Protein, Total 7.5 g/dL (6.0-8.3); Sodium 139 mmol/L (136-145)
[2024-10-29 09:27] LABS: Troponin I Less than 0.010 ng/mL (< 0.028)
[2024-10-29] MEDS ORDERED: Acetaminophen 500 MG TAB ONE (09:42)
[2024-10-29 09:46] LABS: Hematocrit 33.4 % (36.0-47.0); Hemoglobin 9.9 g/dL (12.0-16.0); Mean Corpuscular HGB CONC 29.6 g/dL (32.0-36.0); Mean Corpuscular Volume 87.7 fl (78.0-98.0); Red Blood Cell (RBC) Count 3.81 mill/uL (4.20-5.40); White Blood Cell (WBC) Count 4.6 10x3/uL (4.8-10.8)
[2024-10-29 09:47] LABS: #Basophils 0.1 thou/uL (0.0-0.2); #Eosinophils 0.5 thou/uL (0.0-0.7); #Lymphocytes 1.1 thou/uL (1.20-3.40); #Monocytes 0.3 thou/uL (0.11-0.59); #Neutrophils 2.6 thou/uL (1.40-6.50); %Basophils 1.2 % (0.0-1.0); %Eosinophils 10.1 % (0.0-10.0); %Lymphocytes 25.1 % (21.0-51.0); %Monocytes 6.8 % (0.0-10.0); %Neutrophils 56.8 % (42.0-75.0); Manual Diff?? NO; Mean Platelet Volume 8.4 fL (7.4-10.4); Platelet Count 238 10x3/uL (130-400); RBC Distribution Width 14.1 % (11.5-14.5)
[2024-10-29 14:12] LABS: Bilirubin Small (Negative); Blood, Urine Negative (Negative); Glucose, Urine (Dipstick) Negative (Negative); Ketone, Urine Trace mg/dL (Negative); Leukocyte Negative (Negative); Nitrite Negative (Negative); Protein, Urine (Dipstick) 100 mg/dL (Neg-Trace); Specific Gravity, Urine 1.025 (1.005-1.030); Urobilinogen 0.2 mg/dL (Less than 2); pH, Urine 5.5 (5.0-9.0)
[2024-10-29 14:19] LABS: Clarity Cloudy (Clear)
[2024-10-29 14:20] LABS: Bacteria/HPF 2+ HPF (None Seen); CAUTI Indications for Culture Dysuria,urgency,freq; RBC/HPF 0-3 HPF (0-3); Transitional Epithelial 0-3 HPF (None Seen); Urine Culture Reflex No No; Yeast-Budding 1+ HPF (None Seen)
[2024-10-29] MEDS ORDERED: Amlodipine 5 MG TAB ONE (14:22)
== END 2024-10-29 14:28 | disposition home or self-care (01) ==
LOC: NAV ERS 08:44
DX: I95.1 Orthostatic hypotension (principal); E86.0 Dehydration; I11.0 Hypertensive heart disease with heart failure; I50.9 Heart failure, unspecified; E11.9 Type 2 diabetes mellitus without complications; E78.5 Hyperlipidemia, unspecified; Z95.0 Presence of cardiac pacemaker; Z79.82 Long term (current) use of aspirin; Z79.84 Long term (current) use of oral hypoglycemic drugs; Z79.899 Other long term (current) drug therapy
CPT/HCPCS: 71045; 80053; 81001; 83605; 84484; 85025; 93005

== ENCOUNTER 2024-11-26 08:16 | Emergency (ER) | payer OTHER ==
[2024-11-26] MEDS ORDERED: Sodium Chloride 0.9% 1,000 ML ONE (08:51)
[2024-11-26 09:19] LABS: #Basophils 0.1 thou/uL (0.0-0.2); #Eosinophils 0.4 thou/uL (0.0-0.7); #Lymphocytes 1.3 thou/uL (1.20-3.40); #Monocytes 0.5 thou/uL (0.11-0.59); #Neutrophils 3.4 thou/uL (1.40-6.50); %Basophils 1.4 % (0.0-1.0); %Eosinophils 7.1 % (0.0-10.0); %Lymphocytes 22.7 % (21.0-51.0); %Monocytes 8.3 % (0.0-10.0); %Neutrophils 60.5 % (42.0-75.0); Hematocrit 32.7 % (36.0-47.0); Hemoglobin 9.8 g/dL (12.0-16.0); Mean Corpuscular Hemoglobin 25.7 pg (27.0-31.0); Mean Corpuscular Volume 85.7 fl (78.0-98.0); Mean Platelet Volume 8.6 fL (7.4-10.4); Platelet Count 245 10x3/uL (130-400); RBC Distribution Width 13.7 % (11.5-14.5); Red Blood Cell (RBC) Count 3.82 mill/uL (4.20-5.40); White Blood Cell (WBC) Count 5.6 10x3/uL (4.8-10.8)
[2024-11-26 09:25] LABS: ALT (SGPT) Less than 7 U/L (Less than 34); AST (SGOT) 9 U/L (11-34); Albumin 3.3 g/dL (3.1-4.5); Alkaline Phosphatase 81 U/L (40-110); Anion Gap 13 mmol/L (10-20); BUN (Urea Nitrogen) 23 mg/dL (9.8-20.1); Bilirubin, Total 0.3 mg/dL (0.3-1.2); Calc. Creatinine Clearance 0 mL/min (70-130); Calcium 9.2 mg/dL (7.8-10.44); Carbon Dioxide 22 mmol/L (22-29); Chloride 108 mmol/L (98-107); Estimated GFR 61; Globulin 4.1 g/dL (2.4-3.5); Glucose 206 mg/dL (70-105); Potassium 4.5 mmol/L (3.5-5.1); Protein, Total 7.4 g/dL (6.0-8.3); Sodium 138 mmol/L (136-145)
== END 2024-11-26 10:30 | disposition home or self-care (01) ==
LOC: NAV ERS 08:16
DX: I95.89 Other hypotension (principal); D64.9 Anemia, unspecified; E11.9 Type 2 diabetes mellitus without complications; I11.0 Hypertensive heart disease with heart failure; I50.9 Heart failure, unspecified; E78.5 Hyperlipidemia, unspecified; Z79.899 Other long term (current) drug therapy; Z79.84 Long term (current) use of oral hypoglycemic drugs
CPT/HCPCS: 80053; 85025; 96360; J7030

== ENCOUNTER 2024-12-11 13:33 | Emergency (ER) | payer OTHER | END 2024-12-11 14:45 | disposition home or self-care (01) | LOC: NAV ERS 13:33 | DX: R05.9 Cough, unspecified (principal); I11.0 Hypertensive heart disease with heart failure; I50.9 Heart failure, unspecified; E11.9 Type 2 diabetes mellitus without complications; E78.5 Hyperlipidemia, unspecified; Z79.82 Long term (current) use of aspirin; Z79.84 Long term (current) use of oral hypoglycemic drugs; Z79.899 Other long term (current) drug therapy | CPT/HCPCS: 71046 ==

== ENCOUNTER 2025-01-01 07:12 | Emergency (ER) | payer OTHER ==
[2025-01-01 08:47] LABS: #Basophils 0.1 thou/uL (0.0-0.2); #Eosinophils 0.3 thou/uL (0.0-0.7); #Lymphocytes 1.3 thou/uL (1.20-3.40); #Monocytes 0.5 thou/uL (0.11-0.59); #Neutrophils 3.7 thou/uL (1.40-6.50); %Basophils 0.9 % (0.0-1.0); %Eosinophils 4.8 % (0.0-10.0); %Lymphocytes 21.8 % (21.0-51.0); %Monocytes 8.1 % (0.0-10.0); %Neutrophils 64.4 % (42.0-75.0); Hemoglobin 9.4 g/dL (12.0-16.0); Mean Corpuscular HGB CONC 30.4 g/dL (32.0-36.0); Mean Corpuscular Volume 85.4 fl (78.0-98.0); Mean Platelet Volume 7.7 fL (7.4-10.4); Platelet Count 214 10x3/uL (130-400); RBC Distribution Width 13.8 % (11.5-14.5); Red Blood Cell (RBC) Count 3.63 mill/uL (4.20-5.40); White Blood Cell (WBC) Count 5.8 10x3/uL (4.8-10.8)
[2025-01-01 09:07] LABS: ALT (SGPT) Less than 7 U/L (Less than 34); AST (SGOT) 12 U/L (11-34); Albumin 3.6 g/dL (3.1-4.5); Alkaline Phosphatase 78 U/L (40-110); Anion Gap 13 mmol/L (10-20); BUN (Urea Nitrogen) 33 mg/dL (9.8-20.1); Bilirubin, Total 0.3 mg/dL (0.3-1.2); Calc. Creatinine Clearance 0 mL/min (70-130); Calcium 8.9 mg/dL (7.8-10.44); Carbon Dioxide 18 mmol/L (22-29); Chloride 113 mmol/L (98-107); Estimated GFR 61; Globulin 4.1 g/dL (2.4-3.5); Glucose 96 mg/dL (70-105); Potassium 4.2 mmol/L (3.5-5.1); Protein, Total 7.7 g/dL (6.0-8.3); Sodium 140 mmol/L (136-145)
[2025-01-01 09:08] LABS: Troponin I Less than 0.010 ng/mL (< 0.028)
== END 2025-01-01 10:07 | disposition home or self-care (01) ==
LOC: NAV ERS 07:12
DX: E86.0 Dehydration (principal); D50.9 Iron deficiency anemia, unspecified; I11.0 Hypertensive heart disease with heart failure; I50.9 Heart failure, unspecified; E11.9 Type 2 diabetes mellitus without complications; Z95.0 Presence of cardiac pacemaker
CPT/HCPCS: 36415; 80053; 84484; 85025; 93005; 99285

== ENCOUNTER 2025-01-07 07:12 | Emergency (ER) | payer OTHER ==
[2025-01-07 07:54] LABS: #Basophils 0.1 thou/uL (0.0-0.2); #Eosinophils 0.1 thou/uL (0.0-0.7); #Lymphocytes 0.5 thou/uL (1.20-3.40); #Monocytes 0.8 thou/uL (0.11-0.59); #Neutrophils 8.6 thou/uL (1.40-6.50); %Basophils 0.7 % (0.0-1.0); %Eosinophils 1.4 % (0.0-10.0); %Lymphocytes 4.6 % (21.0-51.0); %Monocytes 8.1 % (0.0-10.0); %Neutrophils 85.1 % (42.0-75.0); Hematocrit 33.3 % (36.0-47.0); Hemoglobin 10.7 g/dL (12.0-16.0); Mean Corpuscular HGB CONC 32.2 g/dL (32.0-36.0); Mean Corpuscular Hemoglobin 27.5 pg (27.0-31.0); Mean Corpuscular Volume 85.6 fl (78.0-98.0); Platelet Count 200 10x3/uL (130-400); Red Blood Cell (RBC) Count 3.89 mill/uL (4.20-5.40); White Blood Cell (WBC) Count 10.1 10x3/uL (4.8-10.8)
[2025-01-07] MEDS ORDERED: Acetaminophen 500 MG TAB ONE (08:03)
[2025-01-07] MEDS ORDERED: Sodium Chloride 0.9% 1,000 ML ONE (08:03)
[2025-01-07] MEDS ORDERED: Aspirin 325 MG TAB ONE (08:03)
[2025-01-07 08:07] LABS: Base Excess-Venous -3.1 mmol/L (-2.0 to 3.0); Bicarbonate (HCO3v) 21.6 mmol/L (22.0-28.0); CO2 Tension (PvCO2) 36.3 mmHg (42.0-51.0); Calcium, Ionized 1.23 mmol/L (1.15-1.33); Chloride 116 mmol/L (98-107); Hemoglobin - Calc 11.7 g/dL (12.0-16.0); Potassium 4.2 mmol/L (3.5-5.1); Sodium 147 mmol/L (138-145); T. Carbon Dioxide 22.7 mmol/L (22.0-28.0); vO2 Saturation-calc 65.2 % (60.0-85.0)
[2025-01-07 08:10] LABS: ALT (SGPT) 7 U/L (Less than 34); AST (SGOT) 21 U/L (11-34); Albumin 3.8 g/dL (3.1-4.5); Alkaline Phosphatase 71 U/L (40-110); Anion Gap 14 mmol/L (10-20); BUN (Urea Nitrogen) 21 mg/dL (9.8-20.1); Bilirubin, Total 0.4 mg/dL (0.3-1.2); Calc. Creatinine Clearance 0 mL/min (70-130); Calcium 9.5 mg/dL (7.8-10.44); Carbon Dioxide 18 mmol/L (22-29); Chloride 115 mmol/L (98-107); Estimated GFR 64; Globulin 4.3 g/dL (2.4-3.5); Glucose 124 mg/dL (70-105); Potassium 4.3 mmol/L (3.5-5.1); Protein, Total 8.1 g/dL (6.0-8.3); Sodium 143 mmol/L (136-145)
[2025-01-07 08:11] LABS: Troponin I Less than 0.010 ng/mL (< 0.028)
== END 2025-01-07 11:46 | disposition home or self-care (01) ==
LOC: NAV ERS 07:12
DX: B34.9 Viral infection, unspecified (principal); E86.0 Dehydration; E78.5 Hyperlipidemia, unspecified; I11.0 Hypertensive heart disease with heart failure; I50.9 Heart failure, unspecified; E11.9 Type 2 diabetes mellitus without complications
CPT/HCPCS: 71046; 71275; 80053; 82330; 82435; 82803; 83605; 83880; 84132; 84295; 84484; 85014; 85025; 85379; 87428; 93005; J7030; 96360; 96361